=== PATIENT | male | born 1960 ===

== ENCOUNTER 2018-06-13 13:00 | Outpatient (RCR) | payer SELFPAY | END 2018-06-27 | disposition home or self-care (01) | LOC: WCC 13:00 | DX: T86.828 Other complications of skin graft (allograft) (autograft) (principal); T81.32XD Disruption of internal operation (surgical) wound, not elsewhere classified, subsequent encounter; T87 Complications peculiar to reattachment and amputation; I99.8 Other disorder of circulatory system; S68.629A Partial traumatic transphalangeal amputation of unspecified finger, initial encounter | CPT/HCPCS: G0277 ×2 ==

== ENCOUNTER 2018-06-13 13:15 | Outpatient (RCR) | payer BC | END 2018-06-27 | disposition home or self-care (01) | LOC: WCC 13:15 | DX: T86.828 Other complications of skin graft (allograft) (autograft) (principal); T81.32XD Disruption of internal operation (surgical) wound, not elsewhere classified, subsequent encounter; T87 Complications peculiar to reattachment and amputation; I99.8 Other disorder of circulatory system; S68.629A Partial traumatic transphalangeal amputation of unspecified finger, initial encounter ==